=== PATIENT | male | born 1955 | race Caucasian/White ===

== ENCOUNTER 2019-06-27 14:03 | Emergency (ER) | payer MEDICAID ==
[~2019-06-27] VITALS: Ht 165.1 cm; Wt 68.5 kg
--- NOTE | 2019-06-27 14:05 | NUR ---
patrica, from [facility] and [facility], c/o sob x 4 days, was at [facility] on 05/25/19 for same reason, smoke cigarette 30 mins prior going to hospital, pt awake, alert, -sob, nad noted, vss, pending md carrillo
[2019-06-27 14:45] LABS: BASOPHILS # (AUTO) 0.1 /CMM (0.0-0.2); BASOPHILS % (AUTO) 1.5 % (0.0-2.0); EOSINOPHILS % (AUTO) 2.2 % (0.0-6.0); HEMATOCRIT 36 % (39-51); LYMPHOCYTES # (AUTO) 1.4 /CMM (0.8-4.8); LYMPHOCYTES % (AUTO) 14.5 % (20.0-44.0); MEAN CORPUSCULAR HGB CONC 31 g/dl (31.0-36.0); MEAN CORPUSCULAR VOLUME 77 fL (80-96); MONOCYTES % (AUTO) 10.6 % (2.0-12.0); NEUTROPHILS # (AUTO) 6.8 /CMM (1.8-8.9); NEUTROPHILS % (AUTO) 71.2 % (43.0-81.0); PLATELET COUNT (AUTO) 218 /CMM (150-450); RED BLOOD CELL COUNT(AUTO) 4.66 MIL/uL (4.5-6.0); WHITE BLOOD COUNT (AUTO) 9.5 K/uL (4.3-11.0)
[2019-06-27 14:54] LABS: CREATININE 0.9 mg/dL (0.6-1.3); POTASSIUM 4.2 mmol/L (3.5-5.1)
[2019-06-27 15:07] LABS: ALBUMIN 3.2 g/dL (3.4-5.0); BILIRUBIN,TOTAL 1.8 mg/dL (0.2-1.0); TOTAL PROTEIN, SERUM 7.1 g/dL (6.4-8.2)
[2019-06-27] MEDS ORDERED: FERR325T23 PO (15:27)
[2019-06-27] MEDS ORDERED: ASPI-1169 PO (15:27)
[2019-06-27] MEDS ORDERED: DOCU-141 PO (15:27)
[2019-06-27] MEDS ORDERED: CARV6.25 PO (15:27)
[2019-06-27] MEDS ORDERED: LORA-259 PO (15:27)
[2019-06-27] MEDS ORDERED: ATOR10TA PO (15:27)
[2019-06-27] MEDS ORDERED: TIOT18CA3 IH (15:27)
[2019-06-27] MEDS ORDERED: LISI-656 PO (15:27)
[2019-06-27] MEDS ORDERED: FURO-144 PO (15:27)
[2019-06-27] MEDS ORDERED: IPRA3AMP23 IH (15:27)
[2019-06-27] MEDS ORDERED: ACET-868 PO (15:27)
[2019-06-27] MEDS ORDERED: POTA-88 PO (15:27)
[2019-06-27] MEDS ORDERED: CLOP75TA15 PO (15:30)
[2019-06-27] MEDS ORDERED: GUAI5SYR PO (15:30)
[2019-06-27] MEDS ORDERED: FUROSEMIDE 20 MG/2 ML VIAL IV ONE (17:00)
[2019-06-27] MEDS ORDERED: FUROSEMIDE 20 MG/2 ML VIAL ONE (17:12)
--- NOTE | 2019-06-27 18:49 | NUR ---
going to [facility], [address] # for report [phone], gary shaikh. pending transport ambulance eta.
--- NOTE | 2019-06-27 19:06 | NUR ---
ETA [facility]
--- NOTE | 2019-06-27 19:15 | NUR ---
Evelyn [place] in EDM - 06/27/19 at 1916 by CESAR [id number], from [facility] and [facility], c/o sob x 4 days, was at [place] on 05/25/19 for same reason, smoke cigarette 30 mins prior going to hospital, pt awake, alert, -sob, nad noted, vss, pending md carrillo
--- NOTE | 2019-06-27 20:01 | NUR ---
report given to puneet nurse at [facility]. 206b room number
--- NOTE | 2019-06-27 21:21 | NUR ---
ambulance eta 25min
[2019-06-27 22:15] VITALS: BP 117/67
--- NOTE | 2019-06-27 22:25 | NUR ---
REPORT GIVEN TO [facility] STAFF, PPW GIVEN, PT LEFT IN STABLE CONDTION VIA PRIVATE AMBULANCE, -SOB, NAD NTOED, VSS.
== END 2019-06-27 22:28 | disposition short-term general hospital (02) ==
LOC: ER 14:10
DX: I11.0 Hypertensive heart disease with heart failure (principal); I50.9 Heart failure, unspecified; E78.5 Hyperlipidemia, unspecified; J45.909 Unspecified asthma, uncomplicated; F17.210 Nicotine dependence, cigarettes, uncomplicated; Z88.0 Allergy status to penicillin; Z79.899 Other long term (current) drug therapy; Z79.82 Long term (current) use of aspirin
CPT/HCPCS: 36415; 71045; 80048; 80076; 83880; 84484; 85025; 85730; 87081; 93005; 93308; 96374; 99285; J1940